=== PATIENT | female | born 1930 | race Caucasian/White ===

== ENCOUNTER 2017-01-12 15:42 | Emergency (ER) | payer MEDICARE, BC ==
--- OUTSIDE RECORDS SUMMARY | 2017-01-12 16:41 | XMS REPORT | Continuity of Care Document ---
:1930 Author Organization [facility] ([facility]) Address [address] [place] [address] Phone [phone] Care Team Providers Name Role Phone William Gandhi Primary Care Provider [phone] Source Comments This disclosure is being made pursuant to the Care Everywhere program, applicable federal and state laws, and may not contain all informaitonavailable regarding this patient.[facility] ([facility]) Active Allergies and Adverse Reactions Allergen Noted Date Severity Reactions Comments Cyclopentolate 09/02/2009 Headache Patient develops brow pain. Dilate with Tropicamide Current Medications Prescription Sig. Disp. Refills Start Date End Date Status METOPROLOL tartrate 25 mg 03/25/2014 Active tablet calcium carbonate (TUMS) pt takes 3-4 daily 08/13/2013 Active (200 mg Ca) 500 mg for GERD chewable tablet multivitamin tablet take 1 tablet by 08/13/2013 Active oral route every day with food warfarin 2 mg tablet take as directed Active per Dr Kimball omega-3 fatty acids-fish 08/13/2013 Active oil 340-1,000 mg per capsule cyanocobalamin (VITAMIN 08/13/2013 Active B-12) 1,000 mcg tablet cholecalciferol (VITAMIN 08/13/2013 Active D3) 1,000 unit tablet Active Problems Problem Noted Date Branch retinal vein occlusion, both eyes 02/15/2011 Macular degeneration 04/07/2009 Overview: Formatting of this note may be different from the original. Right Eye Left Eye Time To Recurrence: Time To Recurrence: Date VA (D cc) CMT Status Procedure VA (D cc) CMT Status Procedure Cmts 2002 TTT x 3 [place] 02/18/2004 & 05/12/2004 PDT x 2 08/22/2005 PDT 04/02/2006 to 07/25/2006 Avastin x 3 11/08/2006 to 01/30/2007 Lucentis x 3 07/12/2007 to 09/11/2007 Lucentis x 3 05/27/2008 to 02/25/2009 Lucentis x 6 04/07/2009 20/80 205 216 Wet Lucentis 05/12/2009 -2 215 Wet Lucentis 06/09/2009 +1 219 Wet Lucentis 07/22/2009 +1 Avastin [id number] 09/02/2009-1 246 Wet Lucentis 7866 10/14/2009 +1 323 -2 245 No injection 02/15/2011 293 266 Avastin [id number] 03/29/2011 20/125 309 Avastin 537741-0 +2 257 Avastin 212163-2 05/17/2011 NO INJECTION NO INJECTION 02/14/2012 20/250 20-2 Avastin [id number] Chronic hepatitis C without mention of hepatic coma 03/19/2006 Social History Tobacco Use Types Packs/Day Years Used Date Former Smoker Smokeless Tobacco: Never Used Tobacco Cessation:Counseling Given: Yes Comments: Alcohol Use Drinks/Week oz/Week Comments No Last Filed Vital Signs Vital Sign Reading Time Taken Blood Pressure 167/77 03/19/2006 8:24 AM CDT Pulse 57 03/19/2006 8:24 AM CDT Temperature 35.5 C (95.9 F) 03/19/2006 8:24 AM CDT Respiratory Rate - - Height 1.605 m (5' 3.18") 03/19/2006 8:24 AM CDT Weight 62.097 kg (136 lb 14.4 oz) 03/19/2006 8:24 AM CDT Body Mass Index 24.11 03/19/2006 8:24 AM CDT Oxygen Saturation - - Plan of Care Health Maintenance Due Date Last Done Comments Hepatitis B Vaccine (1 of 3 - Primary Series) 1928 Tdap Vaccine 1939 Lipid Disorder Screening 1946 Td Vaccine 1946 Zoster Vaccine 1988 Pneumococcal Vaccine (1 of 2 - PCV13) 1993 Influenza Vaccine: Seasonal (#1) 05/29/2016 Results from Last 3 Months Not on file
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
[2017-01-12 17:40] VITALS: BP 158/78
== END 2017-01-12 17:51 | disposition home or self-care (01) ==
LOC: ER 15:42
DX: S22.060A Wedge compression fracture of T7-T8 vertebra, initial encounter for closed fracture (principal); X50.1XXA Overexertion from prolonged static or awkward postures, initial encounter; Y92.810 Car as the place of occurrence of the external cause; I48.91 Unspecified atrial fibrillation; Z79.01 Long term (current) use of anticoagulants; I10 Essential (primary) hypertension

== ENCOUNTER 2017-01-26 11:43 | Emergency (ER) | payer MEDICARE, BC ==
[2017-01-26 12:02] VITALS: BP 144/68
--- OUTSIDE RECORDS SUMMARY | 2017-01-26 12:07 | XMS REPORT | Continuity of Care Document ---
:1930 Author Organization [facility] ([facility]) Address [address] [place] [address] Phone [phone] Care Team Providers Name Role Phone William Gandhi Primary Care Provider [phone] Source Comments This disclosure is being made pursuant to the Care Everywhere program, applicable federal and state laws, and may not contain all informaitonavailable regarding this patient.[facility] ([facility]) Active Allergies and Adverse Reactions Allergen Noted [...] +1 219 Wet Lucentis 07/22/2009 +1 Avastin [id number] 09/02/2009-1 246 Wet Lucentis 7866 10/14/2009 +1 323 -2 245 No injection 02/15/2011 293 266 Avastin 407188-0 03/29/2011 20/125 309 Avastin 585369-9 +2 257 Avastin 667703-8 05/17/2011 NO INJECTION NO INJECTION 02/14/2012 20/250 20-2 Avastin [id number] Chronic hepatitis C without mention of hepatic [...]
== END 2017-01-26 11:50 | disposition home or self-care (01) ==
LOC: ER 11:43
DX: Z13.6 Encounter for screening for cardiovascular disorders (principal)